=== PATIENT | female | born 1950 | race Caucasian/White ===

== ENCOUNTER 2018-05-19 13:30 | Outpatient (CLI) | payer MEDICARE, OTHER, SELFPAY ==
[2018-05-19 15:24] LABS: Abs Immature Grans 0.01 k/cumm (0.0-0.09); Absolute Basophil Count 0.05 k/cumm (0.0-0.2); Absolute Eosinophil Count 0.25 k/cumm (0.0-0.7); Absolute Monocyte Count 0.83 k/cumm (0.11-0.7); Absolute Neutrophil Count 4.84 k/cumm (1.2-6.7); Basophils % 0.6; Eosinophils % 2.8; HCT 43.1 % (36.0-46.0); HGB 14.5 g/dL (12.0-15.5); Immature Grans % 0.1; Lymphocytes % 31.9; Mean Corp. HGB Concentration 33.6 g/dL (32.0-36.0); Mean Corpuscular Hemoglobin 28.6 pg (27.0-33.0); Mean Platelet Volume 10.1 fL (8.0-11.0); Monocytes % 9.5; Neutrophils % 55.1; Platelet Count 246 x1000/uL (130-400); RBC 5.07 m/cumm (4.00-5.20); White Blood Cell Count 8.78 k/cumm (4.4-10.8)
== END 2018-05-19 13:31 ==
PROVIDERS: PCP Family Medicine; Visit Provider Orthopaedic Surgery
DX: M25.562 Pain in left knee (principal); M17.12 Unilateral primary osteoarthritis, left knee; Z01.818 Encounter for other preprocedural examination
CPT/HCPCS: 36415; 85025

== ENCOUNTER 2018-05-30 05:57 | Inpatient (IN) | payer MEDICARE, OTHER, SELFPAY ==
--- NOTE | 2018-05-20 06:40 | PHPE_ITS ---
PREOPERATIVE HISTORY AND PHYSICAL DATE OF PROCEDURE May 30, 2018 DATE OF EXAMINATION May 19, 2018 SURGEON Adin Jones M.D. CHIEF COMPLAINT Left knee pain. IMPRESSION A healthy 67-year-old female only troubled by hypothyroidism with no history of atherosclerotic cardiovascular disease. PLAN Left total knee replacement. The anatomy, operative procedure and typical postop course are again reviewed with Micheline. All questions or any concerns are answered. HISTORY OF PRESENT ILLNESS This 67-year-old female relates a long history of bilateral knee pain with resolve right knee pain status post a successful right total knee arthroplasty . Micheline relates that she notes left sided pain with weightbearing and disturbed sleep, and with doing simple activities of life like walking around the grocery store, any prolonged standing. She is hoping for an excellent result on her left side that she had with her right side. X-rays done in the past consisting of an AP weightbearing showed a complete loss of her medial joint space with osteophyte evidence on the lateral x-ray anteriorly and posterior femoral condyle region. PAST SURGICAL HISTORY Status post the aforementioned right total knee replacement with spinal and femoral nerve block. Status post vaginal hysterectomy in [facility]. Status post tonsillectomy uvulectomy at age 1. Status post bilateral cataracts. PAST MEDICAL HISTORY Positive for hypothyroidism. Most recently, she has had a lot of trouble with allergic rhinitis symptoms. No history of hypertension. No history of exertional chest pain or nitroglycerin use. She has never been prescribed an inhaler for any reactive airway disease. No history of GERD symptomatology or diabetes. CURRENT MEDICATIONS Synthroid 25 mcg q. daily. Aspirin 81 mg daily q. daily. Multivites. Zyrtec. Flonase inhaler with recent allergic rhinitis and symptoms. Motrin p.r.n. ALLERGIES She relates in childhood she had some penicillin sensitivity with a stomachache. She was given Ancef at her 01/10/2018 total knee replacement and tolerated this fine without any difficulty. FAMILY HISTORY Mom and dad both in their late 80s or early 90s. No family history of any anesthesia difficulty. SOCIAL HISTORY She is . Nonsmoker. Rare alcohol drinker. REVIEW OF SYSTEMS HEENT - Has history of itchy eyes and runny nose with her recent ragweed pollen symptomatology. No fevers. CARDIAC - Denies any exertional chest pain when she is at PT working up a sweat and breathing heavily. No history of functional chest pain with household tasks. RESPIRATORY - Denies any purulent productive cough, dyspnea on exertion, or pleuritic chest pain. ABDOMEN - Denies any abdominal pain, nausea, vomiting or bloody or tarry stools. GENITOURINARY - No dysuria. Is troubled by frequency that she relates is chronic secondary to prolapsed bladder and has not changed. No history of hematuria. PHYSICAL EXAMINATION GENERAL - An alert, pleasant, talkative 67-year-old female who walks with an antalgic gait without assistive device today. VITAL SIGNS - Blood pressure 136/90. Pulse rate of 76 and regular. Respiratory rate 16. HEENT - Eyes - Sclerae clear, nonicteric. Nose - No nasal purulence. No nasal polyps. Throat - Midline uvula. No redness or exudate. NECK - Neck is supple. No palpable adenopathy. Normal carotids. No thyromegaly. LUNGS - Lungs are clear. HEART - Heart is regular rhythm. No ectopic beats or murmurs. ABDOMEN -Abdomen is soft, doughy. No organomegaly. No CVA tenderness. No abdominal bruits of pulsatile abdominal masses. EXTREMITIES - Exam of her left knee shows scant effusion to be present. She has a varus angulation. She is just a few degrees shy of full extension and her flexion is intact to about 115 degrees. She has a medial joint line tenderness. No lateral joint line tenderness. There is crepitus felt with range of motion testing. There is tenderness to palpation over her medial joint line and there is some slight MCL laxity to valgus stress testing. She has no pretibial edema. She has normal light touch sensation and normal palpable dorsalis pedis and posterior tib pulses. She does have some superficial spider veins on the dorsal lateral aspect of her ankle. Workup CBC is done, and this is pending at the time of dictation. CC: Day Surgery
[2018-05-30] VITALS (14 sets, daily range): BP systolic 106–139; BP diastolic 60–88; PULSE 65–86; RESP 12–18; TEMP 35.5–37; O2SAT 94–98
[2018-05-30] MEDS: Lactated Ringers 1,000 ML 80 ML IV ×2 (06:47→09:42)
[2018-05-30] MEDS: Bupivacaine 0.5% Pres-Free 30 ML VIAL (07:22)
[2018-05-30] MEDS: Hydrogen Peroxide 3% 480 ML BTL (09:30)
--- NOTE | 2018-05-30 10:51 | DI.RAD_ITS ---
SYMPTOM/DIAGNOSIS: OA LT KNEE, CHECK TKR COMPONENTS LEFT KNEE: The patient is status post placement of a total knee prosthesis. The components appear well aligned. Anterior skin michelle and post surgical soft tissue air is seen.
[2018-05-30] MEDS: POTASSIUM CHLORIDE/0.9% NACL 1,000 ML 125 MEQ IV ×2 (12:05→20:15)
[2018-05-30] MEDS: oxyCODONE-CR 10 MG TABCR PO ×2 (12:05→23:55)
--- NOTE | 2018-05-30 13:36 | PT.INIE ---
PT Notes Date:05/30/18 Referring Doctor: Adin Jones P.T Orders: PT Consult mobilize post op L TKR Precautions: WBAT L LE PATIENT PROFILE/ADMITTING DIAGNOSIS: Pt is a 67yr old female s/p right total knee arthroplasty by Dr. Jones 05/30/18 PMHX: right total knee artroplasty 05/12/18, arthritis left knee, bilateral cataract extraction and lens implantation, vaginal hysterectomy, tonsillectomy, uvulectomy, hypothyroidism Social History/Home Situation: Lives with her in a house, 2-3 steps to enter from garage, can stay on first level inside of home. Baseline mobility independent gait with no device, independent with ADLS Equipment owned/DME: FWW, cryocuff, pull up walker, grab bars in shower with built in toilet seat, grabs bars near toilet SUBJECTIVE: Pt lying in bed, agreeable to PT consult, states she can lift her leg already, reports no pain. Pt states she has a cryocuff at home and plans to have her bring it in, she also has her own ROCHELLE hose she brought in that fits her leg length. OBJECTIVE: General Observation: IV L UE, joe catheter, dressing L LE, knee immobilizer L LE Mental Status: A& O x3 Pain: no c/o pain BED MOBILITY/TRANSFERS: Supine-sit: HOB 30 degrees, superivsion Sit-stand: SBA with FWW Stand-sit: SBA Sit-supine: HOB flat, supervision GAIT: SBA with FWW 50ftx2, WBAT L LE with knee immobilizer in place. Step to gait pattern, steady, no loss of balance. THEREX Pt has pre-op packet with issued home exercise program. Performed ankle pumps, quad sets glute sets x 20 reps this afternoon. Pt is able to perform a SLR with L LE BALANCE: Static sitting normal Dynamic Sitting normal Static Standing fair Dynamic Standing fair SPECIAL TESTS: Mobility Limitations Standardized Measure [facility] AM -PAC ?6 clicks? Basic Mobility Inpatient Short Form: raw score: 18 standardized score: 43.63 CMS score: 46.58% CMS modifier: CK INFORMED CONSENT/EDUCATION: Pt instructed in purpose of PT Consult and plan of care ASSESSMENT: Pt is a 67yr old female s/ p left total knee arthroplasty in seting of s/p right total knee arthroplasty by Dr. Jones 01/10/18. Patient presents with clinical signs and symptoms consistent with post op day 0 TKR as demonstrated by the following impairment level findings: decreased strength L LE requiring use of knee immobilizer for gait, decreased strength with standing transfers, decreased strength with gait mobility requiring knee immobilizer and FWW to maintain balance. Pt was able to mobilize out of bed, and gait train to hallway this afternoon. Pt. will benefit from short term PT intervention with plan to return to home setting. Impairments are contributing to the following functional limitations: AMPAC score CMS score: 46.58% Patient is assessed as a * Low 05223 complexity based on the following: History: s/p right total knee arthroplasty by Dr. Jones 01/10/18 in setting of arthritis left knee. Examination: decreased strength RLLE requiring use of knee immobilizer for gait, decreased strength with standing transfers, decreased strength with gait mobility requiring knee immobilizer and FWW to maintain balance. Presentation: evolving Decision Making: AMPAC score CMS score: 46.58% GOALS Goals x1 week 1. Supine-sit: independent 2. Sit-Supine: independent 3. Sit-Stand: supervision with FWW 4. Stand-sit supervision 5. Bed-chair supervision with FWW 6. Chair-bed supervision with FWW 7. Gait: supervision with FWW 75ftx2, WBAT L LE 8. Stairs: up/down 3 steps with railing,. SBA 9. I with home exercise program for TKA PLAN OF CARE/TREATMENT PLAN: 1-2x/day, 7 days/ week x 1 week Plan of care has been reviewed with the METAL POLISHER providing the service under Physical therapy direction. Initiate physical therapy intervention for strengthening, bed mobility, transfers, gait, stairs, balance training, use of assistive device. DISCHARGE RECOMMENDATIONS home TREATMENT TIME/MINUTES/CODES 25 min IE 1330 G Codes in the area mobility of walking and moving around: current status [id number] -CK projected status GP [id number]__[id number] . Discharge status (if discharging) GP [id number]__[id number] pfhiu on AMPAC score CMS score: 46.58% Trice Oseguera PT Intake Vital Signs 05/19/18 11:33 05/19/18 12:34 05/19/18 12:34 05/30/18 06:10 05/30/18 10:10 05/30/18 10:15 05/30/18 10:20 05/30/18 10:35 05/30/18 10:50 05/30/18 11:04 05/30/18 11:25 Height 5 ft 5 ft 5 ft Weight 184 kg 83.6 kg 83.6 kg BP 130/88 121/60 106/65 109/74 116/71 116/71 120/82 114/77 Respiration 18 17 15 14 12 12 15 18 Pulse 82 86 74 74 70 70 70 65 Temp 36.6 C 36.3 C L 36.3 C L 36.3 C L 36.3 C L 36.3 C L 36.3 C L 35.5 C L Pulse Oximetry (%) 96 94 L 95 95 96 96 96 95 Oxygen Flow Rate 0 3 2 2 2 0 0 0
--- NOTE | 2018-05-30 13:42 | IN_ITS ---
PT Notes Date:05/30/18 Referring Doctor: Adin Jones P.T Orders: PT Consult mobilize post op L TKR Precautions: WBAT L LE PATIENT PROFILE/ADMITTING DIAGNOSIS: Pt is a 67yr old female s/p right total knee arthroplasty by Dr. Jones 05/30/18 PMHX: right total knee artroplasty 05/12/18, arthritis left knee, bilateral cataract extraction and lens implantation, vaginal hysterectomy, tonsillectomy, uvulectomy, hypothyroidism Social History/Home Situation: Lives with her in a house, 2-3 steps to enter from garage, can stay on first level inside of home. Baseline mobility independent gait with no device, independent with ADLS Equipment owned/DME: FWW, cryocuff, pull up walker, grab bars in shower with built in toilet seat, grabs bars near toilet SUBJECTIVE: Pt lying in bed, agreeable to PT consult, states she can lift her leg already, reports no pain. Pt states she has a cryocuff at home and plans to have her bring it in, she also has her own ROCHELLE hose she brought in that fits her leg length. OBJECTIVE: General Observation: IV L UE, joe catheter, dressing L LE, knee immobilizer L LE Mental Status: A& O x3 Pain: no c/o pain BED MOBILITY/TRANSFERS: Supine-sit: HOB 30 degrees, superivsion Sit-stand: SBA with FWW Stand-sit: SBA Sit-supine: HOB flat, supervision GAIT: SBA with FWW 50ftx2, WBAT L LE with knee immobilizer in place. Step to gait pattern, steady, no loss of balance. THEREX Pt has pre-op packet with issued home exercise program. Performed ankle pumps, quad sets glute sets x 20 reps this afternoon. Pt is able to perform a SLR with L LE BALANCE: Static sitting normal Dynamic Sitting normal Static Standing fair Dynamic Standing fair SPECIAL TESTS: Mobility Limitations Standardized Measure [facility] AM -PAC ?6 clicks? Basic Mobility Inpatient Short Form: raw score: 18 standardized score: 43.63 CMS score: 46.58% CMS modifier: CK INFORMED CONSENT/EDUCATION: Pt instructed in purpose of PT Consult and plan of care ASSESSMENT: Pt is a 67yr old female s/ p left total knee arthroplasty in seting of s/p right total knee arthroplasty by Dr. Jones 01/10/18. Patient presents with clinical signs and symptoms consistent with post op day 0 TKR as demonstrated by the following impairment level findings: decreased strength L LE requiring use of knee immobilizer for gait, decreased strength with standing transfers, decreased strength with gait mobility requiring knee immobilizer and FWW to maintain balance. Pt was able to mobilize out of bed, and gait train to hallway this afternoon. Pt. will benefit from short term PT intervention with plan to return to home setting. Impairments are contributing to the following functional limitations: AMPAC score CMS score: 46.58% Patient is assessed as a * Low 85013 complexity based on the following: History: s/p right total knee arthroplasty by Dr. Jones 01/10/18 in setting of arthritis left knee. Examination: decreased strength RLLE requiring use of knee immobilizer for gait , decreased strength with standing transfers, decreased strength with gait mobility requiring knee immobilizer and FWW to maintain balance. Presentation: evolving Decision Making: AMPAC score CMS score: 46.58% GOALS Goals x1 week 1. Supine-sit: independent 2. Sit-Supine: independent 3. Sit-Stand: supervision with FWW 4. Stand-sit supervision 5. Bed-chair supervision with FWW 6. Chair-bed supervision with FWW 7. Gait: supervision with FWW 75ftx2, WBAT L LE 8. Stairs: up/down 3 steps with railing,. SBA 9. I with home exercise program for TKA PLAN OF CARE/TREATMENT PLAN: 1-2x/day, 7 days/ week x 1 week Plan of care has been reviewed with the BRIDGE CRANE OPERATOR providing the service under Physical therapy direction. Initiate physical therapy intervention for strengthening, bed mobility, transfers, gait, stairs, balance training, use of assistive device. DISCHARGE RECOMMENDATIONS home TREATMENT TIME/MINUTES/CODES 25 min IE 1330 G Codes in the area mobility of walking and moving around: current status [id number] -CK projected status GP [id number]__[id number] . Discharge status ( if discharging) GP [id number]__[id number] shpcz on AMPAC score CMS score: 46.58% Trice Oseguera PT Intake Vital Signs 3 l l l l 05/19/18 11:33 l l 05/19/18 12:34 l l 05/19/18 12:34 l l 05/30/18 06:10 l l 05/30/18 10:10 l l 05/30/18 10:15 l l 05/30/18 10:20 l l 05/30/18 10:35 l l 05/30/18 10:50 l l 05/30/18 11:04 l l 05/30/18 11:25 l l Height 5 ft 5 ft 5 ft l l Weight 184 kg 83.6 kg 83.6 kg l l BP 130/88 121/60 106/65 109/74 116/71 116/71 120/82 114/ 77 l l Respiration 18 17 15 14 12 12 15 18 l l Pulse 82 86 74 74 70 70 70 65 l l Temp 36.6 C 36.3 C L 36.3 C L 36.3 C L 36.3 C L 36.3 C L 36.3 C L 35.5 C L l l Pulse Oximetry (%) 96 94 L 95 95 96 96 96 95 l l Oxygen Flow Rate 0 3 2 2 2 0 0 0
[2018-05-30] MEDS: Docusate Sodium 100 MG CAP PO ×2 (14:13→20:15)
--- NOTE | 2018-05-30 16:04 | ROE_ITS ---
DATE OF PROCEDURE: May 30, 2018 PREOPERATIVE DIAGNOSIS: Osteoarthritis left knee with varus deformity. POSTOPERATIVE DIAGNOSIS: Same. PROCEDURE: Left total knee replacement. COMPONENTS USED: Size 2 femoral component, posterior-stabilized; size 2 tibial component; size 2, 12 .5 posterior-stabilized polyethylene tibial insert; 32 mm tri-pronged patella. All components were c emented. ANESTHESIA: General, plus femoral nerve block. SURGEON: Adin Jones M.D. MANAGER MBA: WILLIAM Gonzalez INDICATIONS: This is a 67-year-old white female with progressive disability due to pain from osteoar thritis of her left knee. This has been present for many years. She has undergone a successful righ t total knee replacement two years ago. Her left knee at that time was tolerable. She has now progr essed over the last two years so the pain is interfering with activities of daily living and is limit ing her independence. Total knee replacement was recommended to alleviate her pain and hopefully res tore some of her previous ambulatory abilities. The risks and complications of the procedure were ex plained to the patient in detail preoperatively. PROCEDURE: The patient was taken to the operating room on 05/30/18. She was placed supine on the ope rating table. A femoral nerve block was administered and then a general anesthetic was administered. A proximal tourniquet was applied to the left upper thigh and then the left lower extremity was pre pped from toes to tourniquet and draped free in the usual sterile fashion. An anterior midline incision was made beginning at the tibial tubercle and extending four inches prox imal to the patella. The incision was carried down through the skin and subcu to the fascia and a me dial parapatellar capsular incision was made, extended proximally and longitudinally in line with the quad tendon. The patella was everted. A completed medial subperiosteal release was performed to co rrect for a varus deformity. The distal femur was then resected using intramedullary alignment guides and jigs. She was found to require a size 2 femoral component. The proximal tibia was resected using extramedullary alignment g uides and jigs. The patient was also found to require a size 2 tibial tray. The keel for the tibial tray was then reamed and punched out in proper rotation alignment. Finally the patella was resecte d using a patellar resection guide. Care was taken to leave 50 mm thickness of patella bone for impl antation of a patellar component. Using the drill guide for the tri-pronged patella, the holes for t he patellar component were drilled in proper rotation alignment. The proximal tibia was prepared for cementing with pulse irrigation lavage of saline solution and dry ing with peroxide-soaked strip sponges. One batch of gentamicin-impregnated methylmethacrylate was v acuum mixed and hand packed on the prepared tibia. The tibial component was inserted and packed into place with the impactor mallet and further pressurized using the trial components and extending the knee. Excess cement was trimmed from the margins of the tibial component while the cement was still soft using the plastic cement removal tool. When the first batch of methylmethacrylate had cured, I then prepared the distal femur and patella for cementing with pulse irrigation lavage of saline solut ion and drying with peroxide-soaked strip sponges. Another batch of gentamicin-impregnated methylmet hacrylate was vacuum mixed and was hand packed onto the prepared distal femur and patella. The femor al component was then packed into place with impactor mallet and pressurized using the trial insert a nd extending the knee. The patellar component was inserted and pressurized using the patellar clamp. Excess cement was trimmed from the margins of the femoral component and the patellar component whil e the cement was still soft using the plastic cement removal tool. The hole for the intramedullary a lignment michael from the femur was plugged with resected bone from the distal femoral cuts prior to ceme ntation. When the second batch of methylmethacrylate had cured, the trial insert was removed. The p osterior recesses were checked and any additional bone and cement debris was removed at this point. The posterior capsule was freed up circumferentially. A final trial showed that a 12.5 insert provi ded the best stability while still allowing full extension. The actual insert 12.5 rotating platform , posterior-stabilized size 2 was then placed on the tibial component and reduced onto the femoral co ndyles. Patellar tracking was checked using the [id number]-thumb. The patellar tendons tracked late rally and therefore a lateral retinacular release was performed. The knee was flexed over soft goods and closure was begun. The wound was irrigated with Betadine and saline solution and the wound margins were infiltrated with 0.5% Marcaine with an epinephrine solution. The medial capsule and quadriceps tendon incisions were repaired with interrupted [id number] sutures of #1 Vicryl suture material. The subcu was appro ximated with interrupted #2-0 Vicryl sutures and the skin edges were approximated with skin michelle. Sterile dressings were applied of Xeroform gauze, sterile gauze 4x4's, ABD pad, wrapped with a Kerli x bandage. A long-leg Rosales compressive dressing was applied. The tourniquet was released. A knee immobilizer splint was placed over the Rosales dressing to maintain the knee in extension. The patient received one gram of Tranexamic acid prior to tourniquet inflation and one gram after tourniquet def lation. Blood loss was minimal. The patient's anesthesia was reversed without complications and she was discharged to recovery in good condition.
[2018-05-30] MEDS: Ketorolac 30 MG/ML VIAL IVP ×2 (16:27→21:52)
[2018-05-30] MEDS: Normal Saline Flush 10 ML SYR IV (16:28)
[2018-05-31] VITALS (8 sets, daily range): BP systolic 108–130; BP diastolic 69–77; PULSE 71–91; RESP 16–20; TEMP 36.5–37.1; O2SAT 94–97
[2018-05-31] MEDS: Ketorolac 30 MG/ML VIAL IVP ×4 (04:54→21:58)
[2018-05-31] MEDS: Levothyroxine 25 MCG TAB PO (07:14)
[2018-05-31] MEDS: Pantoprazole 40 MG TABCR PO (07:14)
[2018-05-31 07:34] LABS: HCT 39.1 % (36.0-46.0); HGB 12.9 g/dL (12.0-15.5); Mean Corpuscular Hemoglobin 28.7 pg (27.0-33.0); Mean Corpuscular Volume 86.9 fL (80-95); Mean Platelet Volume 9.8 fL (8.0-11.0); Platelet Count 217 x1000/uL (130-400); RBC Distribution Width 14.1 % (11.7-14.6); White Blood Cell Count 11.21 k/cumm (4.4-10.8)
[2018-05-31] MEDS: Aspirin E.C. 81 MG TABEC PO (08:08)
[2018-05-31] MEDS: Multivitamin w/Minerals TAB 1 TAB PO (08:08)
[2018-05-31] MEDS: Docusate Sodium 100 MG CAP PO ×3 (08:08→20:03)
--- NOTE | 2018-05-31 08:31 | PT.INTREAT ---
PT Notes Inpatient Physical Therapy Treatment Note PRECAUTIONS:knee immobilizer L LE, WBAT L LE SUBJECTIVE: Pt lying in bed, states she feels good this morning, no pain. OBJECTIVE: General observation: IV L UE, joe catheter PAIN: no c/o pain BED MOBILITY/TRANSFERS Supine-sit: HOB 35 degrees, independent Sit-stand: independent with FWW Stand-sit: independent Bed-Chair: independent with FWW GAIT Assistive Device: FWW Weight bearing: WBAT L LE Assist: supervision Distance: 200ft Deviation: step through gait pattern with steady stride and ekaterina THEREX: Performed supine ankle pumps, quad sets, glute sets x 20 reps, SLR L LE 10x STAIRS: Pt instructed in up/down 5 steps with railing independent. WBAT L LE ASSESSMENT: Pt performing transfers independently, progressed gait to 200ft with FWW, able to perform stairs. She is at functional level to be able to return to home setting today or when medically cleared. Will await for MD order for change of SAN dressing. Pt to bring in cryocuff from home today. PLAN: Progress strengthening TREATMENT CODE/TIME: 30min TAx1 TP x1 8am Trice Oseguera PT Intake Vital Signs 05/19/18 11:33 05/19/18 12:34 05/19/18 12:34 05/30/18 06:10 05/30/18 10:10 05/30/18 10:15 05/30/18 10:20 05/30/18 10:35 05/30/18 10:50 05/30/18 11:04 05/30/18 11:25 05/30/18 12:30 05/30/18 13:30 05/30/18 14:00 05/30/18 16:26 05/30/18 20:19 05/31/18 00:41 05/31/18 04:32 Height 5 ft 5 ft 5 ft Weight 184 kg 83.6 kg 83.6 kg BP 130/88 121/60 106/65 109/74 116/71 116/71 120/82 114/77 130/83 139/79 128/76 121/71 109/71 128/74 Respiration 18 17 15 14 12 12 15 18 18 17 18 18 16 16 Pulse 82 86 74 74 70 70 70 65 69 76 66 76 80 71 Temp 36.6 C 36.3 C L 36.3 C L 36.3 C L 36.3 C L 36.3 C L 36.3 C L 35.5 C L 35.9 C L 36.2 C L 36.0 C L 37.0 C 37.1 C 36.5 C Temp Source Tympanic Tympanic Tympanic Tympanic Tympanic Tympanic Pulse Oximetry (%) 96 94 L 95 95 96 96 96 95 94 L 97 98 96 94 L 95 96 Oxygen Flow Rate 0 3 2 2 2 0 0 0 0 2 2 2 2 2 0
--- NOTE | 2018-05-31 08:38 | PTTR_ITS ---
PT Notes Inpatient Physical Therapy Treatment Note PRECAUTIONS:knee immobilizer L LE, WBAT L LE SUBJECTIVE: Pt lying in bed, states she feels good this morning, no pain. OBJECTIVE: General observation: IV L UE, joe catheter PAIN: no c/o pain BED MOBILITY/TRANSFERS Supine-sit: HOB 35 degrees, independent Sit-stand: independent with FWW Stand-sit: independent Bed-Chair: independent with FWW GAIT Assistive Device: FWW Weight bearing: WBAT L LE Assist: supervision Distance: 200ft Deviation: step through gait pattern with steady stride and ekaterina THEREX: Performed supine ankle pumps, quad sets, glute sets x 20 reps, SLR L LE 10x STAIRS: Pt instructed in up/down 5 steps with railing independent. WBAT L LE ASSESSMENT: Pt performing transfers independently, progressed gait to 200ft with FWW, able to perform stairs. She is at functional level to be able to return to home setting today or when medically cleared. Will await for MD order for change of SAN dressing. Pt to bring in cryocuff from home today. PLAN: Progress strengthening TREATMENT CODE/TIME: 30min TAx1 TP x1 8am Trice Oseguera PT Intake Vital Signs 3 l l l l 05/19/18 11:33 l l 05/19/18 12:34 l l 05/19/18 12:34 l l 05/30/18 06:10 l l 05/30/18 10:10 l l 05/30/18 10:15 l l 05/30/18 10:20 l l 05/30/18 10:35 l l 05/30/18 10:50 l l 05/30/18 11:04 l l 05/30/18 11:25 l l 05/30/18 12:30 l l 05/30/18 13:30 l l 05/30/18 14:00 l l 05/30/18 16:26 l l 05/30/18 20:19 l l 05/31/18 00:41 l l 05/31/18 04:32 l l Height 5 ft 5 ft 5 ft l l Weight 184 kg 83.6 kg 83.6 kg l l BP 130/88 121/60 106/65 109/74 116/71 116/71 120/82 114/ 77 130/83 139/79 128/76 121/71 109/71 128/74 l l Respiration 18 17 15 14 12 12 15 18 18 17 18 18 16 16 l l Pulse 82 86 74 74 70 70 70 65 69 76 66 76 80 71 l l Temp 36.6 C 36.3 C L 36.3 C L 36.3 C L 36.3 C L 36.3 C L 36.3 C L 35.5 C L 35.9 C L 36.2 C L 36.0 C L 37.0 C 37.1 C 36.5 C l l Temp Source Tympanic Tympanic Tympanic Tympanic Tympanic Tympanic l l Pulse Oximetry (%) 96 94 L 95 95 96 96 96 95 94 L 97 98 96 94 L 95 96 l l Oxygen Flow Rate 0 3 2 2 2 0 0 0 0 2 2 2 2 2 0
[2018-05-31] MEDS: Normal Saline Flush 10 ML SYR IV ×2 (09:27→16:57)
[2018-05-31] MEDS: Enoxaparin 40 MG/0.4 ML SYR SC (09:27)
--- NOTE | 2018-05-31 10:56 | PT.INTREAT ---
PT Notes Date: 05/31/18 PRECAUTIONS:knee immobilizer L LE, WBAT L LE SUBJECTIVE: Pt up in chair x 2 hours, agreeable to second therapy session. OBJECTIVE: General observation: IV L UE, joe catheter PAIN: c/o pain left quad, not rated BED MOBILITY/TRANSFERS Sit-stand: independent with FWW Stand-sit: independent Chair-bed: independent with FWW Sit-supine: HOB flat independent GAIT Assistive Device: FWW Weight bearing: WBAT L LE Assist: independent Distance: 200ft Deviation: step through gait pattern with steady stride and ekaterina THEREX: Performed supine ankle pumps, quad sets, glute sets x 20 reps, SLR L LE 10x ASSESSMENT: Pt mobilizing independently with transfers and gait with FWW. Slightly increased pain in knee today compared to yesterday but managable. PLAN: Progress strengthening TREATMENT CODE/TIME: 25min TAx1 TP x1 10:40am Trice Oseguera PT Intake Vital Signs 05/19/18 11:33 05/19/18 12:34 05/19/18 12:34 05/30/18 06:10 05/30/18 10:10 05/30/18 10:15 05/30/18 10:20 05/30/18 10:35 05/30/18 10:50 05/30/18 11:04 05/30/18 11:25 05/30/18 12:30 05/30/18 13:30 05/30/18 14:00 05/30/18 16:26 05/30/18 20:19 05/31/18 00:41 05/31/18 04:32 05/31/18 07:26 05/31/18 07:30 05/31/18 09:49 Height 5 ft 5 ft 5 ft Weight 184 kg 83.6 kg 83.6 kg BP 130/88 121/60 106/65 109/74 116/71 116/71 120/82 114/77 130/83 139/79 128/76 121/71 109/71 128/74 119/75 Respiration 18 17 15 14 12 12 15 18 18 17 18 18 16 16 20 Pulse 82 86 74 74 70 70 70 65 69 76 66 76 80 71 79 Temp 36.6 C 36.3 C L 36.3 C L 36.3 C L 36.3 C L 36.3 C L 36.3 C L 35.5 C L 35.9 C L 36.2 C L 36.0 C L 37.0 C 37.1 C 36.5 C 36.9 C Temp Source Tympanic Tympanic Tympanic Tympanic Tympanic Tympanic Skin Pulse Oximetry (%) 96 94 L 95 95 96 96 96 95 94 L 97 98 96 94 L 95 96 95 94 L 96 Oxygen Flow Rate 0 3 2 2 2 0 0 0 0 2 2 2 2 2 0 2 0 0
--- NOTE | 2018-05-31 11:00 | PTTR_ITS ---
PT Notes Date: 05/31/18 PRECAUTIONS:knee immobilizer L LE, WBAT L LE SUBJECTIVE: Pt up in chair x 2 hours, agreeable to second therapy session. OBJECTIVE: General observation: IV L UE, joe catheter PAIN: c/o pain left quad, not rated BED MOBILITY/TRANSFERS Sit-stand: independent with FWW Stand-sit: independent Chair-bed: independent with FWW Sit-supine: HOB flat independent GAIT Assistive Device: FWW Weight bearing: WBAT L LE Assist: independent Distance: 200ft Deviation: step through gait pattern with steady stride and ekaterina THEREX: Performed supine ankle pumps, quad sets, glute sets x 20 reps, SLR L LE 10x ASSESSMENT: Pt mobilizing independently with transfers and gait with FWW. Slightly increased pain in knee today compared to yesterday but managable. PLAN: Progress strengthening TREATMENT CODE/TIME: 25min TAx1 TP x1 10:40am Trice Oseguera PT Intake Vital Signs 3 l l l l 05/19/18 11:33 l l 05/19/18 12:34 l l 05/19/18 12:34 l l 05/30/18 06:10 l l 05/30/18 10:10 l l 05/30/18 10:15 l l 05/30/18 10:20 l l 05/30/18 10:35 l l 05/30/18 10:50 l l 05/30/18 11:04 l l 05/30/18 11:25 l l 05/30/18 12:30 l l 05/30/18 13:30 l l 05/30/18 14:00 l l 05/30/18 16:26 l l 05/30/18 20:19 l l 05/31/18 00:41 l l 05/31/18 04:32 l l 05/31/18 07:26 l l 05/31/18 07:30 l l 05/31/18 09:49 l l Height 5 ft 5 ft 5 ft l l Weight 184 kg 83.6 kg 83.6 kg l l BP 130/88 121/60 106/65 109/74 116/71 116/71 120/82 114/ 77 130/83 139/79 128/76 121/71 109/71 128/74 119/75 l l Respiration 18 17 15 14 12 12 15 18 18 17 18 18 16 16 20 l l Pulse 82 86 74 74 70 70 70 65 69 76 66 76 80 71 79 l l Temp 36.6 C 36.3 C L 36.3 C L 36.3 C L 36.3 C L 36.3 C L 36.3 C L 35.5 C L 35.9 C L 36.2 C L 36.0 C L 37.0 C 37.1 C 36.5 C 36.9 C l l Temp Source Tympanic Tympanic Tympanic Tympanic Tympanic Tympanic Skin l l Pulse Oximetry (%) 96 94 L 95 95 96 96 96 95 94 L 97 98 96 94 L 95 96 95 94 L 96 l l Oxygen Flow Rate 0 3 2 2 2 0 0 0 0 2 2 2 2 2 0 2 0 0
--- NOTE | 2018-05-31 11:40 | PHARADMIT ---
Admission Pharmacy Clinical Review OA (L) Knee Code Status Full Code Current Weight Wgt- 83.6 kg Renally Cleared and Narrow Therapeutic Index Meds na QTc Value / Action Taken na BP Control, Fever BP-113/69 Tmax- 37.0C Electrolytes reviewed na DVT Prophylaxis Lovenox-40mg Opiate Usage / Scheduled Bowel Regimen Ordered Yes Yes Plt/SCr for Heparin / Enoxaparin Plts- 217 INR for Warfarin na H/H stable, WBC/Bands H&H- 12.9/39.1 WBC- 11.21 Antibiotic appropriateness Anech Pre-op Cultures and Sensitivities na Surgical ABX d/c within 24 hr yes DM control / Insulin Dosing na Heart Failure (Check EF%) (MEKHI's, B-Block, Diuretics) none IV to PO Switch No Home Meds Reviewed Yes Home Meds Not Ordered Ibuprofen, Comments
[2018-05-31] MEDS: oxyCODONE-CR 10 MG TABCR PO ×2 (12:02→23:34)
--- NOTE | 2018-05-31 12:26 | PDOC.CMIN ---
- If Service Date Differs Date of service: 05/31/18 Time of Service: 12:27 Care Management Initial Assess REASON FOR HOSPITALIZATION:: OA left knee. PAST MEDICAL HISTORY/PAST SURGICAL HISTORY:: Hypothyroidism, allergies. Surgical hx: bilateral cataract extraction, hysterectomy, tonsillectomy, uvulectomy, right total knee (01/05), colonoscopies. PREVIOUS FUNCTIONAL STATUS/SOCIAL/FAMILY SUPPORTS:: Micheline resides in her own home in [place] with her , Jean Paul. She has two adult children and a step son. Micheline is independent with her ADLs and transportation. She reports that she has no reservations regarding discharging home when medically ready per MD. CURRENT FUNCTIONAL STATUS:: Micheline is sitting in her recliner with , Jean Paul, at her side when CM visits this morning. She is engaged in conversation, makes good eye contact and is talkative. Micheline reports that she is sore following working with PT this morning but that she is not in any pain. Pt reports that she had a right TKA in December of this year and that she has a walker at home. Micheline's has brought in her cryo cuff from home and reports that the house has grab bars in the bathroom. ADVANCE DIRECTIVES:: Not on file at [facility]. Has patient been provided with information about the portal?: Yes Did the patient sign up for the portal?: No CODE STATUS:: Full Code INSURANCE COVERAGE / FINANCIAL ISSUES:: [employer], Medicare. CURRENT HOME/COMMUNITY SERVICES/EQUIPMENT:: No current home or community services. PRIMARY CARE PHYSICIAN:: Sukhi Hawkins. POTENTIAL DISCHARGE NEEDS:: Follow up appointment with MD. Outpatient PT services. PATIENT/FAMILY EDUCATION NEEDS:: Discharge education, any limitations and follow up plan of care. Ask Me Three discussion. ANTICIPATED BARRIERS TO DISCHARGE:: No anticipated barriers to discharge. TRANSPORTATION:: Micheline will transport home via private vehicle with , Jean Paul. PLAN:: Micheline will discharge home when medically ready per MD. Anticipate Micheline will have out patient PT and follow up with MD. CM will continue to provide support to pt, family and care team regarding discharge planning and disposition.
--- NOTE | 2018-05-31 12:45 | INITIAL_ITS ---
- If Service Date Differs Date of service: 05/31/18 Time of Service: 12:27 Care Management Initial Assess REASON FOR HOSPITALIZATION:: OA left knee. PAST MEDICAL HISTORY/PAST SURGICAL HISTORY:: Hypothyroidism, allergies. Surgical hx: bilateral cataract extraction, hysterectomy, tonsillectomy, uvulectomy, right total knee (01/05), colonoscopies. PREVIOUS FUNCTIONAL STATUS/SOCIAL/FAMILY SUPPORTS:: Micheline resides in her own home in [place] with her , Jean Paul. She has two adult children and a step son. Micheline is independent with her ADLs and transportation. She reports that she has no reservations regarding discharging home when medically ready per MD. CURRENT FUNCTIONAL STATUS:: Micheline is sitting in her recliner with , Jean Paul, at her side when CM visits this morning. She is engaged in conversation, makes good eye contact and is talkative. Micheline reports that she is sore following working with PT this morning but that she is not in any pain. Pt reports that she had a right TKA in December of this year and that she has a walker at home. Micheline's has brought in her cryo cuff from home and reports that the house has grab bars in the bathroom. ADVANCE DIRECTIVES:: Not on file at [facility]. Has patient been provided with information about the portal?: Yes Did the patient sign up for the portal?: No CODE STATUS:: Full Code INSURANCE COVERAGE / FINANCIAL ISSUES:: [employer], Medicare. CURRENT HOME/COMMUNITY SERVICES/EQUIPMENT:: No current home or community services. PRIMARY CARE PHYSICIAN:: Sukhi Hawkins. POTENTIAL DISCHARGE NEEDS:: Follow up appointment with MD. Outpatient PT services. PATIENT/FAMILY EDUCATION NEEDS:: Discharge education, any limitations and follow up plan of care. Ask Me Three discussion. ANTICIPATED BARRIERS TO DISCHARGE:: No anticipated barriers to discharge. TRANSPORTATION:: Micheline will transport home via private vehicle with , Jean Paul. PLAN:: Micheline will discharge home when medically ready per MD. Anticipate Micheline will have out patient PT and follow up with MD. CM will continue to provide support to pt, family and care team regarding discharge planning and disposition.
[2018-05-31] MEDS: POTASSIUM CHLORIDE/0.9% NACL 1,000 ML 60 MEQ IV (14:35)
--- NOTE | 2018-05-31 15:25 | W.PM.PROGNOT ---
Date of service: 05/31/18 Time of Service: 14:25 Subjective Patient reports: feels better and tolerating a regular diet Interval history since last seen: Micheline is feeling well. She says the femoral nerve block worked a lot better this time on her left side than he did with for her right total knee. She has been up and walking in the hallway. Exam Narrative Exam Narrative: Assessment is stable postop day #1 left total knee replacement. Plan: DC IV fluids ,DC [place]. Will have the therapist take off her Rosales compressive dressing and start active range of motion of her left knee. Continue to mobilize per protocol for total knee replacement. DC home when fully independent and taking only p.o. pain meds. Objective Objective Clinical Data: Abnormal lab results 05/31/18 Range/Units 07:10 WBC 11.21 H (4.4-10.8) k/cumm She is afebrile vital signs are stable. Hemoglobin 12.9 g this morning. Therapist reports that she was independent getting out of bed. She is moving her toes fully actively on the left she has good sensation and capillary refill left foot. Temp 36.9 C 05/31/18 11:25 Pulse 80 05/31/18 11:25 Resp 20 05/31/18 11:25 BP 113/69 05/31/18 11:25 Pulse Ox 97 05/31/18 11:25 Intake & Output 05/30/18 05/31/18 05/31/18 23:59 11:59 23:59 Intake Total 2160.833 / 2160.833 1163 / 1163 554.917 / 554.917 Output Total 1150 / 1150 1150 / 1150 450 / 450 Balance 1010.833 / 1010.833 104.917 / 104.917 Intake: IV 890.833 / 890.833 803 / 803 314.917 / 314.917 Oral 1270 / 1270 360 / 360 240 / 240 Output: Urine 1150 / 1150 1150 / 1150 450 / 450 Other: Urine Color Pale Yellow Straw Yellow Urine Appearance Clear Clear Clear Laboratory Results WBC 11.21 k/cumm (4.4-10.8) H 05/31/18 07:10 RBC 4.50 m/cumm (4.00-5.20) 05/31/18 07:10 Hgb 12.9 g/dL (12.0-15.5) 05/31/18 07:10 Hct 39.1 % (36.0-46.0) 05/31/18 07:10 MCV 86.9 fL (80-95) 05/31/18 07:10 MCH 28.7 pg (27.0-33.0) 05/31/18 07:10 MCHC 33.0 g/dL (32.0-36.0) 05/31/18 07:10 RDW 14.1 % (11.7-14.6) 05/31/18 07:10 Plt Count 217 x1000/uL (130-400) 05/31/18 07:10 MPV 9.8 fL (8.0-11.0) 05/31/18 07:10
--- NOTE | 2018-05-31 15:32 | PT.INNT ---
PT Notes Physical Therapy Note 05/31/18 requested removal of SAN Dressing when P.T in patient room with . SAN dressing removed, incision was clean and dry with michelle in place. Applied new Xeroform, 4-4x4 gauze, long leg ROCHELLE hose and cryocuff to left knee per MD protocol. Patient reported she felt comfortable. Trice Oseguera PT
[2018-06-01 00:39] VITALS: BP 127/73; PULSE 89; RESP 20; TEMP 37.8; O2SAT 94
[2018-06-01 04:23] VITALS: BP 134/78; PULSE 92; RESP 18; TEMP 37.8; O2SAT 93
[2018-06-01] MEDS: Acetaminophen 325 MG TAB 650 MG PO (04:31)
[2018-06-01] MEDS: Ketorolac 30 MG/ML VIAL IVP ×2 (04:57→10:08)
[2018-06-01] MEDS: Levothyroxine 25 MCG TAB PO (05:42)
[2018-06-01 06:51] LABS: HCT 38.6 % (36.0-46.0); HGB 12.7 g/dL (12.0-15.5); Mean Corp. HGB Concentration 32.9 g/dL (32.0-36.0); Mean Corpuscular Hemoglobin 28.9 pg (27.0-33.0); Mean Corpuscular Volume 87.7 fL (80-95); Mean Platelet Volume 10.2 fL (8.0-11.0); Platelet Count 215 x1000/uL (130-400); RBC Distribution Width 14.6 % (11.7-14.6); White Blood Cell Count 10.81 k/cumm (4.4-10.8)
[2018-06-01 07:45] VITALS: BP 123/74; PULSE 86; RESP 18; TEMP 36.8; O2SAT 93
[2018-06-01] MEDS: Docusate Sodium 100 MG CAP PO (07:54)
[2018-06-01] MEDS: oxyCODONE 5 mg/Acetaminophen 325 mg TAB 1 TAB PO (07:54)
[2018-06-01] MEDS: Aspirin E.C. 81 MG TABEC PO (07:54)
--- NOTE | 2018-06-01 07:54 | PT.INDS ---
PT Notes Inpatient Physical Therapy Discharge Summary Date: 06/01/18 Dates of Service: 05/30/18-06/01/18 SUBJECTIVE: Pt states she was sore last night at 5:30 in the morning when she had to go to the bathroom, she did receive pain medication and feels better this morning. Her primary concern is pain control, she states she has a low tolerance for pain, but she feels comfortable with her mobility. OBJECTIVE: General Observation: knee immobilizer L LE, cryocuff L LE Pain: 5 left knee, RN providing pain medication this morning BED MOBILITY/TRANSFERS: Supine-sit: independent Sit-stand: independent with FWW Stand-sit: independent Bed-chair: independent with FWW GAIT: independent with FWW [id number] WBAT L LE with knee immobilizer in place. Step to gait pattern, steady. Pt up in chair for breakfast with L LE elevated on foot stool with pillows THEREX Pt has pre-op packet with issued home exercise program. Performed ankle pumps, quad sets glute sets x 20 reps this morning. Pt flexing left knee 0-50 BALANCE: Static sitting normal Dynamic Sitting normal Static Standing fair Dynamic Standing fair ASSESSMENT: Pt is a 67yr old female s/ p left total knee arthroplasty in seting of s/p right total knee arthroplasty by Dr. Jones 01/10/18. Patient was seen for 4 PT visits. Progressed from supervision bed transfers to independent, from SBA standing transfers to independent, from SBA gait with FWW 50ftx2 to independent gait with FWW 200ft, able to ascend/descend 5 steps with railing independent, she is independent with home exercise program and has handout. Pt has met therapy goals and is ready for discharge to home setting when medically cleared. GOALS Goals x1 week 1. Supine-sit: independent 2. Sit-Supine: independent 3. Sit-Stand: supervision with FWW 4. Stand-sit supervision 5. Bed-chair supervision with FWW 6. Chair-bed supervision with FWW 7. Gait: supervision with FWW 75ftx2, WBAT L LE 8. Stairs: up/down 3 steps with railing,. SBA 9. I with home exercise program for TKA Pt met goals # 1-9 DISCHARGE RECOMMENDATIONS home TREATMENT TIME/MINUTES/CODES 24 min TAx1 TP x1 7:30 G Codes in the area mobility of walking and moving around:_projected status GP [id number]__[id number] . Discharge status (if discharging) GP [id number]__[id number]__ Trice Oseguera PT
[2018-06-01] MEDS: Pantoprazole 40 MG TABCR PO (07:55)
[2018-06-01] MEDS: Multivitamin w/Minerals TAB 1 TAB PO (07:55)
--- NOTE | 2018-06-01 08:01 | INDS_ITS ---
PT Notes Inpatient Physical Therapy Discharge Summary Date: 06/01/18 Dates of Service: 05/30/18-06/01/18 SUBJECTIVE: Pt states she was sore last night at 5:30 in the morning when she had to go to the bathroom, she did receive pain medication and feels better this morning. Her primary concern is pain control, she states she has a low tolerance for pain, but she feels comfortable with her mobility. OBJECTIVE: General Observation: knee immobilizer L LE, cryocuff L LE Pain: 5 left knee, RN providing pain medication this morning BED MOBILITY/TRANSFERS: Supine-sit: independent Sit-stand: independent with FWW Stand-sit: independent Bed-chair: independent with FWW GAIT: independent with FWW [id number] WBAT L LE with knee immobilizer in place. Step to gait pattern, steady. Pt up in chair for breakfast with L LE elevated on foot stool with pillows THEREX Pt has pre-op packet with issued home exercise program. Performed ankle pumps, quad sets glute sets x 20 reps this morning. Pt flexing left knee 0-50 BALANCE: Static sitting normal Dynamic Sitting normal Static Standing fair Dynamic Standing fair ASSESSMENT: Pt is a 67yr old female s/ p left total knee arthroplasty in seting of s/p right total knee arthroplasty by Dr. Jones 01/10/18. Patient was seen for 4 PT visits. Progressed from supervision bed transfers to independent, from SBA standing transfers to independent, from SBA gait with FWW 50ftx2 to independent gait with FWW 200ft, able to ascend/descend 5 steps with railing independent, she is independent with home exercise program and has handout. Pt has met therapy goals and is ready for discharge to home setting when medically cleared. GOALS Goals x1 week 1. Supine-sit: independent 2. Sit-Supine: independent 3. Sit-Stand: supervision with FWW 4. Stand-sit supervision 5. Bed-chair supervision with FWW 6. Chair-bed supervision with FWW 7. Gait: supervision with FWW 75ftx2, WBAT L LE 8. Stairs: up/down 3 steps with railing,. SBA 9. I with home exercise program for TKA Pt met goals # 1-9 DISCHARGE RECOMMENDATIONS home TREATMENT TIME/MINUTES/CODES 24 min TAx1 TP x1 7:30 G Codes in the area mobility of walking and moving around:_projected status GP [id number]__[id number] . Discharge status (if discharging) GP [id number]__[id number]__ Trice Oseguera PT
[2018-06-01 08:50] VITALS: O2SAT 96
--- NOTE | 2018-06-01 09:18 | PDOC.CMPRO ---
- If Service Date Differs Date of service: 06/01/18 Time of Service: 09:18 Care Management Progress Note S: Micheline was sitting up in her recliner when CM visited this morning. She is engaged in conversation, makes good eye contact and is talkative. Micheline reports that her pain is a 1/10 when sitting with her immobilizer in place and is 2/10 when ambulating. Her joe was removed last evening and she is voiding well. She has been discharged from PT and is ambulating well independently in her room. A: 67 year old female admitted for Right Knee DJD on 05/31/18. P: Micheline will discharge home when medically ready per MD. Anticipate pt will discharge with outpatient PT services and follow up appointment with MD. Micheline will transport via private vehicle with her , Jean Paul. CM will continue to provide support to patient, family and care team regarding discharge planning and disposition.
[2018-06-01] MEDS: Enoxaparin 40 MG/0.4 ML SYR SC (10:09)
[2018-06-01] MEDS: Celecoxib 200 MG CAP PO (10:09)
[2018-06-01] MEDS: Normal Saline Flush 10 ML SYR IV (10:09)
[2018-06-01 11:47] VITALS: BP 112/73; PULSE 71; RESP 20; TEMP 36.5; O2SAT 94
[2018-06-01] MEDS: oxyCODONE-CR 10 MG TABCR PO (12:00)
[2018-06-01 15:55] VITALS: BP 100/60; PULSE 78; RESP 17; TEMP 36.3; O2SAT 96
--- NOTE | 2018-06-01 16:27 | W.PM.DS.N ---
Date of service: 06/01/18 Time of Service: 16:27 DS: Diagnosis Discharge Diagnosis (1) Status post total left knee replacement using cement: Status: Acute (2) Status post total knee replacement, right: Status: Chronic Discharge Plan Disposition Patient Disposition: HOME Condition: Good Discharge Details Reason For Visit: OA (L) KNEE Admit Date/Time: 05/30/18 05:57 Admit Provider: Adin Jones Attending Provider: Adin Jones Primary Care Provider: Sukhi Hawkins [facility] Course Hospital Course: Patient was taken to the operating room on the day of admission 05/30/2018 where she underwent a left total knee replacement without complications. Postoperatively she was mobilize per protocol for total knee replacement. She progressed rapidly with immobilization. She achieved a full independence by 06/01/2018. She was afebrile throughout her hospital course. She was transitioned off all IV narcotics by 06/01/2018. On 9 06/01/2018 it was felt that she had achieved all her her acute care goals. She was therefore discharged home. Home Meds and New Rx's Prescriptions: New oxycodone-acetaminophen [Percocet] 5-325 mg tablet 1 tab PO Q6H Qty: 20 RF: 0 Continue multivitamin [Daily Multiple] 1 EACH tablet 1 ea PO DAILY RF: 0 aspirin [Aspir-81] 81 MG tablet,delayed release (DR/EC) 81 mg PO DAILY RF: 0 levothyroxine [Synthroid] 25 MCG tablet 25 mcg PO DAILY RF: 0 cetirizine [Zyrtec] 10 MG capsule 10 mg PO DAILY PRNRF: 0 fluticasone [Flonase Allergy Relief] 9.9 ML spray,suspension 1 spray NS PRN PRNRF: 0 Changed ibuprofen [Advil] 200 MG tablet 600 mg PO TID Qty: 60 RF: 0 Discharge Instructions Additional Instructions: Elevate L leg when sitting. Apply cryocuff to L knee 4 times/day for 1 hour each time. Wear long stocking on L during daytime only, for 2 weeks to decrease swelling. May shower and get michelle wet. After showering, pat michelle dry and cover with light gauze dressing so they don't catch on pants or stocking. Use walker, crutchesa or cane as long as you limp. Outpatient physical therapy on Wednesday or Wednesday for L total knee rehab. Follow up in 's office in 2 weeks. Call his office tomorrow to make appointment. Stand Alone Forms: Nursing Discharge Form Activity:: Activity as Tolerated Equipment/Supplies:: Walker Diet:: Regular Discharge Orders Discharge Orders: Discharge Order (Routine); Ordered 06/01/18 Ordered By: Adin Jones DS: Summary Status at Discharge Functional status at discharge: uses cane/walker Overall status at discharge: patient is progressing back to baseline DS: Data Vitals/I&O Vitals and I&O: Vital Signs Temp 36.3 C L 06/01/18 15:55 Pulse 78 06/01/18 15:55 Resp 17 06/01/18 15:55 BP 100/60 06/01/18 15:55 Pulse Ox 96 06/01/18 15:55 Intake & Output 05/31/18 06/01/18 06/01/18 23:59 11:59 23:59 Intake Total 1692.917 / 1692.917 540 / 540 250 / 250 Output Total 725 / 725 300 / 300 Balance 967.917 / 967.917 240 / 240 250 / 250 Intake: IV 662.917 / 662.917 20 / 20 Oral 1030 / 1030 520 / 520 250 / 250 Output: Urine 725 / 725 300 / 300 Other: Urine Color Light Alisa Yellow Urine Appearance Clear Clear Urine Odor Normal Normal Comment pt voiding in toilet independently Voiding Methods Toilet Toilet Toilet Labs on day of discharge: Labs from last 24 hours 06/01/18 06:18 WBC 10.81 H RBC 4.40 Hgb 12.7 Hct 38.6 MCV 87.7 MCH 28.9 MCHC 32.9 RDW 14.6 Plt Count 215 MPV 10.2
--- NOTE | 2018-06-02 10:23 | PT.INTREAT ---
Date of service: 05/31/18 Time of Service: 08:00 PT Notes Inpatient Physical Therapy Treatment Note PRECAUTIONS:knee immobilizer L LE, WBAT L LE SUBJECTIVE: Pt lying in bed, states she feels good this morning, no pain. OBJECTIVE: General observation: IV L UE, joe catheter PAIN: no c/o pain BED MOBILITY/TRANSFERS Supine-sit: HOB 35 degrees, independent Sit-stand: independent with FWW Stand-sit: independent Bed-Chair: independent with FWW GAIT Assistive Device: FWW Weight bearing: WBAT L LE Assist: supervision Distance: 200ft Deviation: step through gait pattern with steady stride and ekaterina THEREX: Performed supine ankle pumps, quad sets, glute sets x 20 reps, SLR L LE 10x STAIRS: Pt instructed in up/down 5 steps with railing independent. WBAT L LE ASSESSMENT: Pt performing transfers independently, progressed gait to 200ft with FWW, able to perform stairs. She is at functional level to be able to return to home setting today or when medically cleared. Will await for MD order for change of SAN dressing. Pt to bring in cryocuff from home today. PLAN: Progress strengthening TREATMENT CODE/TIME: 30min TAx1 TP x1 8am Trice Oseguera PT
--- NOTE | 2018-06-02 10:33 | PT.INTREAT ---
Date of service: 05/31/18 Time of Service: 10:50 PT Notes Date: 05/31/18 PRECAUTIONS:knee immobilizer L LE, WBAT L LE SUBJECTIVE: Pt up in chair x 2 hours, agreeable to second therapy session. OBJECTIVE: General observation: IV L UE, joe catheter PAIN: c/o pain left quad, not rated BED MOBILITY/TRANSFERS Sit-stand: independent with FWW Stand-sit: independent Chair-bed: independent with FWW Sit-supine: HOB flat independent GAIT Assistive Device: FWW Weight bearing: WBAT L LE Assist: independent Distance: 200ft Deviation: step through gait pattern with steady stride and ekaterina THEREX: Performed supine ankle pumps, quad sets, glute sets x 20 reps, SLR L LE 10x ASSESSMENT: Pt mobilizing independently with transfers and gait with FWW. Slightly increased pain in knee today compared to yesterday but managable. PLAN: Progress strengthening TREATMENT CODE/TIME: 25min TAx1 TP x1 10:40am Trice Oseguera PT
--- NOTE | 2018-06-02 14:46 | IN_ITS ---
Date of service: 05/30/18 Time of Service: 13:30 PT Notes Pt is s/p LEFT total knee arthroplasty 05/30/18 ( correction for admitting diagnosis section of note) PT Notes Date:05/30/18 Referring Doctor: Adin Jones P.T Orders: PT Consult mobilize post op L TKR Precautions: WBAT L LE PATIENT PROFILE/ADMITTING DIAGNOSIS: Pt is a 67yr old female s/p right total knee arthroplasty by Dr. Jones 05/30/18 PMHX: right total knee artroplasty 05/12/18, arthritis left knee, bilateral cataract extraction and lens implantation, vaginal hysterectomy, tonsillectomy, uvulectomy, hypothyroidism Social History/Home Situation: Lives with her in a house, 2-3 steps to enter from garage, can stay on first level inside of home. Baseline mobility independent gait with no device, independent with ADLS Equipment owned/DME: FWW, cryocuff, pull up walker, grab bars in shower with built in toilet seat, grabs bars near toilet SUBJECTIVE: Pt lying in bed, agreeable to PT consult, states she can lift her leg already, reports no pain. Pt states she has a cryocuff at home and plans to have her bring it in, she also has her own ROCHELLE hose she brought in that fits her leg length. OBJECTIVE: General Observation: IV L UE, joe catheter, dressing L LE, knee immobilizer L LE Mental Status: A& O x3 Pain: no c/o pain BED MOBILITY/TRANSFERS: Supine-sit: HOB 30 degrees, superivsion Sit-stand: SBA with FWW Stand-sit: SBA Sit-supine: HOB flat, supervision GAIT: SBA with FWW 50ftx2, WBAT L LE with knee immobilizer in place. Step to gait pattern, steady, no loss of balance. THEREX Pt has pre-op packet with issued home exercise program. Performed ankle pumps, quad sets glute sets x 20 reps this afternoon. Pt is able to perform a SLR with L LE BALANCE: Static sitting normal Dynamic Sitting normal Static Standing fair Dynamic Standing fair SPECIAL TESTS: Mobility Limitations Standardized Measure [facility] AM -PAC ?6 clicks? Basic Mobility Inpatient Short Form: raw score: 18 standardized score: 43.63 CMS score: 46.58% CMS modifier: CK INFORMED CONSENT/EDUCATION: Pt instructed in purpose of PT Consult and plan of care ASSESSMENT: Pt is a 67yr old female s/ p left total knee arthroplasty in seting of s/p right total knee arthroplasty by Dr. Jones 01/10/18. Patient presents with clinical signs and symptoms consistent with post op day 0 TKR as demonstrated by the following impairment level findings: decreased strength L LE requiring use of knee immobilizer for gait, decreased strength with standing transfers, decreased strength with gait mobility requiring knee immobilizer and FWW to maintain balance. Pt was able to mobilize out of bed, and gait train to hallway this afternoon. Pt. will benefit from short term PT intervention with plan to return to home setting. Impairments are contributing to the following functional limitations: AMPAC score CMS score: 46.58% Patient is assessed as a * Low [id number] complexity based on the following: History: s/p right total knee arthroplasty by Dr. Jones 01/10/18 in setting of arthritis left knee. Examination: decreased strength RLLE requiring use of knee immobilizer for gait , decreased strength with standing transfers, decreased strength with gait mobility requiring knee immobilizer and FWW to maintain balance. Presentation: evolving Decision Making: AMPAC score CMS score: 46.58% GOALS Goals x1 week 1. Supine-sit: independent 2. Sit-Supine: independent 3. Sit-Stand: supervision with FWW 4. Stand-sit supervision 5. Bed-chair supervision with FWW 6. Chair-bed supervision with FWW 7. Gait: supervision with FWW 75ftx2, WBAT L LE 8. Stairs: up/down 3 steps with railing,. SBA 9. I with home exercise program for TKA PLAN OF CARE/TREATMENT PLAN: 1-2x/day, 7 days/ week x 1 week Plan of care has been reviewed with the [employer] [employer]ISTRAR providing the service under Physical therapy direction. Initiate physical therapy intervention for strengthening, bed mobility, transfers, gait, stairs, balance training, use of assistive device. DISCHARGE RECOMMENDATIONS home TREATMENT TIME/MINUTES/CODES 25 min IE 1330 G Codes in the area mobility of walking and moving around: current status [id number] -CK projected status GP [id number]__[id number] . Discharge status ( if discharging) GP [id number]__[id number] ujmas on AMPAC score CMS score: 46.58% Trice Oseguera PT
== END 2018-06-01 17:34 | disposition home or self-care (01) | DRG 470 ==
LOC: PDS 09:01 → MS 10:36
PROVIDERS: Admitting Provider Orthopaedic Surgery; PCP Family Medicine; Visit Provider Orthopaedic Surgery
PROC: 0SRD0J9 Replacement of Left Knee Joint with Synthetic Substitute, Cemented, Open Approach (ICD-10-PCS; CPT 27447; principal; 2018-05-30 07:30)
DX: M17.12 Unilateral primary osteoarthritis, left knee (principal); M21.162 Varus deformity, not elsewhere classified, left knee; E03.9 Hypothyroidism, unspecified; Z96.652 Presence of left artificial knee joint; Z96.651 Presence of right artificial knee joint
CPT/HCPCS: 27447; 36415; 76942; 85027; 97110; 97161; 97530; J1650; NC; 73560; J0690; J1885; J2250; J3490; L1830

== ENCOUNTER → 2018-05-30 07:46 | Outpatient (BNVA) | payer MEDICARE, OTHER, SELFPAY | PROVIDERS: PCP Family Medicine; Visit Provider Orthopaedic Surgery | DX: M17.12 Unilateral primary osteoarthritis, left knee (principal); Z96.652 Presence of left artificial knee joint ==

== ENCOUNTER → 2018-06-15 10:08 | Outpatient (BNVA) | payer MEDICARE, OTHER, SELFPAY | PROVIDERS: PCP Family Medicine; Referring Provider Family Medicine; Visit Provider Orthopaedic Surgery | DX: Z47.1 Aftercare following joint replacement surgery (principal); Z96.653 Presence of artificial knee joint, bilateral | CPT/HCPCS: 99211 ==

== ENCOUNTER → 2018-07-13 09:48 | Outpatient (BNVA) | payer MEDICARE, OTHER, SELFPAY | PROVIDERS: PCP Family Medicine; Referring Provider Family Medicine; Visit Provider Orthopaedic Surgery | DX: Z47.1 Aftercare following joint replacement surgery (principal); Z96.652 Presence of left artificial knee joint ==

== ENCOUNTER 2019-05-30 10:32 | Outpatient (CLI) | payer MEDICARE, OTHER, SELFPAY ==
--- NOTE | 2019-05-30 10:27 | DI.COMBO_ITS ---
SYMPTOM/DIAGNOSIS: ANNUAL F/U LEFT KNEE: 05/30 Two views were obtained and show total knee joint replacement in position. Components appear well seated. No other significant bony abnormality seen. RIGHT KNEE: 05/30 Two views were obtained and show total knee joint replacement in position. Components appear well seated. No other significant bony abnormality seen.
== END 2019-05-30 10:52 ==
PROVIDERS: PCP Family Medicine; Referring Provider Family Medicine; Visit Provider Orthopaedic Surgery
DX: Z96.653 Presence of artificial knee joint, bilateral (principal); Z47.1 Aftercare following joint replacement surgery
CPT/HCPCS: 99213; 73560